=== PATIENT | male | born 1960 | race Native Hawaiian/Other Pacific Islander ===

== ENCOUNTER → 2017-01-07 | Outpatient (CLI) | payer BC ==
--- NOTE | 2017-01-07 12:07 | PN ---
DATE OF SERVICE: 01/07/2017 A 56-year-old gentleman who has been followed in the Sleep Center for treatment of obstructive sleep apnea-hypopnea syndrome. I discussed results of diagnostic sleep study and CPAP titration with the patient in detail. He has moderate obstructive sleep apnea-hypopnea syndrome. He was started on treatment with CPAP. He is trying to use his equipment every night, he feels better with the equipment, sleeping better and feeling better during the day. His complaint is that he has pain in his left nostril versus no pain in the right nostril. I checked his CPAP unit. Usage is 28 out of 30 nights for more than 4 hours. Average usage is 6.8 hours. Pressure is 10 cm of water. Leak is 11 L/min, which is in acceptable range. Apnea-hypopnea index reading from the machine is only 0.8. MEDICATIONS: None. During physical exam, patient in no distress. BP 126/58, HR 72, RR 16. Weight 199.8. Temp 98.2. Oxygen saturation at room air 97%. [place] Sleepiness Scale is 2. OROPHARYNX: Low position of soft palate. NECK: Supple. No JVD, Thyroid is not palpable. LUNGS: Clear to percussion and to auscultation. Good air exchange. No wheezing or rhonchi. HEART: S1, S2 regular. No murmurs, gallops, or rubs. ABDOMEN: Soft and nontender. Bowel sounds are present. No organomegaly appreciated. CROSS TIE MAKER: Awake, alert, and oriented x3. Cranial nerves 2 to 7 intact. There is no fasciculation or atrophy noted. No focal deficits observed. IMPRESSION: 1. Moderate obstructive sleep apnea-hypopnea syndrome. Apnea-hypopnea index 20.6 with oxygen desaturation to 86.3%, on control with CPAP at 10 cm of water. 2. Mild periodic limb movements have been documented during the sleep study. 3. Patient has history of out of dream behavior episodes, significantly improved after he is on treatment with CPAP. No significant problem at the present time. 4. Nasal septum deviation. 5. Size of the left nostril is less than right nostril, nasal septum deviation and restriction of nasal breathing more on the right side PLAN: 1. We will try different size of nasal pillows. 2. If it will not work, we may consider small nasal mask to prevent any discomfort in the nostrils. 3. Gel Young to the nostrils with the usage of nasal pillow mask. 4. Losing weight. 5. Sleep hygiene with regular time in bed for at least 8 hours. 6. No driving if feeling any sleepiness. Sincerely, Juanjo Kim MD, PhD, FAASM Diplomat of [place] Board of Sleep Medicine, Sleep Medicine Board by [place] [employer] Specialities [place] Board of Internal Medicine Laundry Tech of [facility] [place]
== END | disposition home or self-care (01) ==
LOC: SLEEP 10:36
PROVIDERS: ATTEND Internal Medicine
DX: G47.33 Obstructive sleep apnea (adult) (pediatric) (principal); J34.2 Deviated nasal septum

== ENCOUNTER 2017-10-22 08:00 | Day surgery (SDC) | payer BC ==
[2017-10-20 11:37] VITALS: BMI 27.3
--- NOTE | 2017-10-22 07:14 | P.GSHP ---
History of Present Illness H&P Date: 10/22/17 CHIEF COMPLAINT: Hemorrhoids including colonoscopy screening. HISTORY OF PRESENT ILLNESS: The patient is a 57-year-old male who presents with hemorrhoids including need for colon screening. Lower endoscopy was offered for further evaluation and management. PAST MEDICAL HISTORY: Please see list. PAST SURGICAL HISTORY: Please see list. MEDICATIONS: Please see list. ALLERGIES: Please see list. SOCIAL HISTORY: No illicit drug use FAMILY HISTORY: No reports of Crohn disease or ulcerative colitis. REVIEW OF ORGAN SYSTEMS: CONSTITUTIONAL: No reports of fevers or chills. No reports of weight loss despite prior attempts. GI: Has diarrhea including change in bowel habits. PHYSICAL EXAM: VITAL SIGNS: Stable GENERAL: Well-developed pleasant male in no acute distress. HEENT: No scleral icterus. Extraocular movements grossly intact. Moist buccal mucosa. NECK: Supple without lymphadenopathy. CHEST: Unlabored respirations. Equal bilateral excursions. CARDIOVASCULAR: Regular rate and rhythm. Distal 2+ pulses. ABDOMEN: Soft, nontender, nondistended. MUSCULOSKELETAL: No clubbing, cyanosis, or edema. ASSESSMENT: 1. History of hemorrhoids. 2. Due for colonic screening. PLAN: 1. I have recommended proceeding with a colonoscopy and hemorrhoidectomy. 2. Postoperative recovery including up to 4 weeks recovery were also described. Past Medical History Past Medical History: Sleep Apnea/CPAP/BIPAP Additional Past Medical History / Comment(s): cpap, hemorrhoids, inner ear issues on occasion History of Any Multi-Drug Resistant Organisms: None Reported Additional Past Surgical History / Comment(s): colonoscopy, wisdom teeth Past Anesthesia/Blood Transfusion Reactions: No Reported Reaction Smoking Status: Never smoker - Past Family History Mother Family Medical History: Cancer Additional Family Medical History / Comment(s): stomach Medications and Allergies Home Medications Medication Instructions Recorded Confirmed Type Acetaminophen/Diphenhydramine 1 each PO DAILY PRN 10/20/17 10/20/17 History [Tylenol PM Extra Strength] Ibuprofen [Advil] 200 mg PO Q8HR PRN 10/20/17 10/20/17 History Allergies Allergy/AdvReac Type Severity Reaction Status Date / Time sulfamethoxazole Allergy Rash/Hives Verified 10/20/17 11:18 [From Bactrim] trimethoprim [From Bactrim] Allergy Rash/Hives Verified 10/20/17 11:18
[~2017-10-22 08:00] MED LIST: BUPIVACAINE LIPOSOME/PF 1.3% 20 ML, SODIUM CHLORIDE 0.9% 10 ML MISCELLANE ONE; DEXAMETHASONE SOD PHOSPHATE 10 MG/ML 1 ML VIAL IV ONE; HEPARIN SODIUM,PORCINE 5,000 UNIT/ML 1 ML VIAL SQ ONE; HYDROmorphone 0.5 MG/0.5 ML SYRINGE IVP PRN; LACTATED RINGERS 1,000 ML IV SCH; LIDOCAINE 1% 20 ML VIAL (10MG/ML) FOR IV START INTRADERMA PRN; ONDANSETRON 4 MG/2 ML VIAL IVP ONE; Pre Op ABX Message 1 EACH MISC MISCELLANE ONE; SCOPOLAMINE 1.5MG/72HR PATCH TRANSDERM ONE; ceFAZolin IN SWFI 2 GM/20 ML SYRINGE IVP ONE
[2017-10-22 08:39] VITALS: TEMP 97.1
[2017-10-22] MEDS ORDERED: fentaNYL (PF) 50 MCG/ML 2 ML AMP ONE (09:54)
[2017-10-22] MEDS ORDERED: PROPOFOL 10 MG/ML 20 ML VIAL IV ONE (09:54)
[2017-10-22] MEDS ORDERED: MIDAZOLAM 2 MG/2 ML VIAL ONE (09:54)
--- NOTE | 2017-10-22 10:57 | P.OP ---
Date of Procedure: 10/22/17 Description of Procedure: SURGEON: TED MEYERS MD AIRPORT OPERATIONS SUPERVISOR: NONE. PREOPERATIVE DIAGNOSES: 1. History of complicated internal hemorrhoids, grade 3 2. History of complicated external hemorrhoids, grade 3. 3. Rectal bleeding. POSTOPERATIVE DIAGNOSES: 1. History of complicated internal hemorrhoids, grade 3 2. History of complicated external hemorrhoids, grade 3. 3. Rectal bleeding. OPERATION: 1. Intraoperative colonoscopy (please see separate operative report). 2. Excision of internal and external hemorrhoids x3 using LigaSure. ANESTHESIA: General with local anesthetic, Exparel. ESTIMATED BLOOD LOSS: 2 mL. PATHOLOGY: Internal, external hemorrhoidal complex x 3. FINDINGS: 1. Complicated internal hemorrhoid, grade 3 with recent bleed. 2. External hemorrhoid, grade 3 excised. 3. No anal stricture upon excision of hemorrhoidal complexes. INDICATIONS: The patient is a 57-year-old male who presents with history of anemia including rectal bleeding. He has history of complicated hemorrhoids. He presents for excision of her hemorrhoids including colonoscopy. Benefits and risks of the procedure, including bleeding, infection, incontinence, recurrent pain and recurrence of the hemorrhoids were discussed in detail. Informed consent was obtained. DESCRIPTION: Patient was brought to the operating room. An initial intraoperative colonoscopy was proposed. The patient was kept on a stretcher and repositioned in the left lateral decubitus position. A timeout protocol with the endoscopy team was performed. An intraoperative colonoscopy was completed. Please see separate operative report for details. The patient was now prepared for the surgical portion of her procedure. After general induction, he was then repositioned the prone jackknife position. Next, the perineum and buttocks was spread apart using Mastisol. The perineum was then prepped and draped in standard sterile fashion using Betadine. Preoperative medication was confirmed. Prior to incision, a timeout protocol was confirmed with surgical team. Initially 2 fingers was easily inserted for dilation of the anus. Next, using a Hill-Holguin anoscope, each hemorrhoidal cushion was addressed using a hand-held LigaSure. In a stepwise fashion, each hemorrhoidal complex was elevated using an Allis clamp. Of the right lateral cushion, a grade 3 internal and external hemorrhoidal complex of recent bleeding was encountered and excised. Next, attention was brought to the anterior lateral portion whereby grade 3 internal/external hemorrhoid was also excised in a similar fashion using a LigaSure. Finally the hemorrhoidal complex was elevated using a Allis clamp and the left lateral cushion was excised at the internal and external complex using a LigaSure device. Hemostasis was excellent. At the end of the case, 2 fingers were readily passed through the anus without any features of the anal stricture or stenosis. Please note that prior to hemorrhoidectomy a rectal block using Exparel was placed for anesthetic. The perineum was cleansed. A 4 x 4 with mesh underwear was placed. At the end of the procedure, needle, sponge, and counts had been verified correct by the rn medical surgical. The patient then had tolerated the procedure well. Intraoperative findings including postoperative care instructions were discussed with his family whereby he Sitz baths at least 3 times daily was advised. Stool softeners including prophylactic Flagyl for 5 to 7 day course was also addressed as well as pain medication.
--- NOTE | 2017-10-22 11:00 | P.PCN ---
Date of Procedure: 10/22/17 Description of Procedure: PREOPERATIVE DIAGNOSIS: Colonoscopy screening. POSTOPERATIVE DIAGNOSIS: Colonoscopy screening. Colon polyps descending colon. OPERATION: Colonoscopy to the ileocecal valve and appendiceal orifice. Colonoscopy with multiple cold forceps biopsies. SURGEON: Soha Ocampo MD. ANESTHESIA: MAC. INDICATIONS: The patient is a 57-year-old male who presents for colonoscopy screening. Benefits and risks were described and informed consent was obtained. DESCRIPTION OF PROCEDURE: The patient had undergone Gatorade, MiraLAX and Dulcolax prep. He had been brought into the operating room and laid in the left lateral decubitus position. After adequate intravenous sedation, the rectum was examined with 2% lidocaine jelly. External hemorrhoids were encountered. The prostate was smooth and without nodularity. The rectal tone was within normal limits. No lesions were palpated in the rectal vault. An Olympus colonoscope was advanced until the ileocecal valve and appendiceal orifice were clearly viewed. The prep was fair with visualization of the mucosal folds. The scope was removed with visualization of each mucosal fold. No scattered diverticulosis was encountered. Colonic polyps were found and cold forcep biopsy. No evidence of focal colitis was found. Retroflexion of the scope demonstrated grade 3 internal hemorrhoids without active bleeding or inflammation. The colon was desufflated. The patient had tolerated the procedure well. Withdrawal time was over 6 minutes. FINDINGS: Internal hemorrhoids, grade 3 External hemorrhoids, grade 3. No arteriovenous malformations. No sigmoid diverticulosis. Removal of 2 hyperplastic polyps from the descending colon: - Cold forceps biopsy at 40 cm from the anal verge, 5 mm polyp. - Cold forceps biopsy at 35 cm from the anal verge, 4 mm polyp. No focal colitis. RECOMMENDATIONS: Repeat colonoscopy in 5 years, 2021. Plan - Discharge Summary New Discharge Prescriptions: No Action Ibuprofen [Advil] 200 mg PO Q8HR PRN PRN Reason: Pain Acetaminophen/Diphenhydramine [Tylenol PM Extra Strength] 1 each PO DAILY PRN PRN Reason: Insomnia Discharge Medication List Acetaminophen/Diphenhydramine [Tylenol PM Extra Strength] 1 each PO DAILY PRN [History] Ibuprofen [Advil] 200 mg PO Q8HR PRN 10/20/17 [History]
[2017-10-22 11:07] VITALS: PULSE 67; RESP 20
[2017-10-22 12:24] VITALS: BP 121/76
== END 2017-10-22 12:23 | disposition home or self-care (01) ==
LOC: ORWHC2ENDO 08:00
PROVIDERS: ATTEND Surgery Plastic and Reconstructive Surgery
DX: K64.8 Other hemorrhoids (principal); D12.3 Benign neoplasm of transverse colon; K64.4 Residual hemorrhoidal skin tags; K62.5 Hemorrhage of anus and rectum; D64.9 Anemia, unspecified; G47.30 Sleep apnea, unspecified; Z80.0 Family history of malignant neoplasm of digestive organs; Z79.1 Long term (current) use of non-steroidal anti-inflammatories (NSAID); Z79.899 Other long term (current) drug therapy; Z88.2 Allergy status to sulfonamides
CPT/HCPCS: 88304; 88305; 45380; 46260; J2250; J1644; J1100; J0690; J2405; J3010; C9290; J2704

== ENCOUNTER → 2017-12-16 | Outpatient (CLI) | payer BC ==
--- NOTE | 2017-12-16 17:30 | PN ---
PROGRESS NOTE DATE OF SERVICE: 12/16/2017 A 57-year-old gentleman who has been followed in the Sleep Center for treatment of obstructive sleep apnea-hypopnea syndrome. Patient continues successfully to use his CPAP equipment without any problems. No snoring with the machine. No daytime sleepiness. [place] Sleepiness Scale is 4. I checked patient's CPAP unit. CPAP pressure is 10 cm of water. Average usage 5.5 hours. Apnea-hypopnea index 0.6 only with the machine, which is perfect. Leak is not significant, only 13 L/minute. The patient is using DreamWear CPAP mask. MEDICATIONS: None. PHYSICAL EXAMINATION: GENERAL Patient in no distress. VITAL SIGNS BP 129/74 HR 70, RR 16, height 5 feet 7 inches weight now 192, BMI 30, temp 97.6, oxygen saturation at room air 98%. HEENT PERRLA, EOMI, evaluation of oropharynx showed tongue protrudes midline, low position of soft palate. Neck Supple, no JVD. Thyroid is not palpable. LUNGS Clear to percussion and to auscultation. Good air exchange. No wheezing or rhonchi. HEART S1, S2 regular. No murmurs, gallops, or rubs. ABDOMEN Soft and nontender. Bowel sounds are present. No organomegaly appreciated. EXTREMITIES No clubbing or cyanosis. PROGRAM CONSULTANT Awake, alert, and oriented X3. Cranial nerves 2 to 7 intact. There is no fasciculation or atrophy. noted. No focal deficits observed. IMPRESSION: 1. Obstructive sleep apnea-hypopnea syndrome on full control with CPAP at 10 cm of water. Patient benefitting from treatment. 2. Mild obesity, BMI 30.0. Patient lost 7 pounds of weight since last visit about 1 year ago. 3. No episodes of out of dream movements. 4. No episodes of any out of dream movements at the present time, after which the patient was started on treatment with CPAP. 5. History of mild periodic limb movements. 6. Mild nasal septum deviation. PLAN: 1. Continue treatment with CPAP every night for the whole night. 2. Watching and losing weight. 3. Sleep hygiene with regular time in bed for at least 8 hours. 4. No driving if feeling any sleepiness. 5. Followup visit in 1 year or earlier if patient has any problems. Thank you very much for allowing me to participate in management of your patient. Sincerely, Juanjo Kim MD, PhD, FAASM Diplomat of [place] Board of Medical Specialties [place] Board of Internal Medicine Tipple Operator of [facility] [place] MMFAY / ZION: [id number] /
== END | disposition home or self-care (01) ==
LOC: SLEEP 16:09
PROVIDERS: ATTEND Internal Medicine
DX: G47.33 Obstructive sleep apnea (adult) (pediatric) (principal); E66.9 Obesity, unspecified; J34.2 Deviated nasal septum; Z68.30 Body mass index [BMI] 30.0-30.9, adult; Z87.09 Personal history of other diseases of the respiratory system; Z99.89 Dependence on other enabling machines and devices

== ENCOUNTER → 2019-10-19 | Outpatient (CLI) | payer BC, OTHER ==
--- NOTE | 2019-10-19 17:08 | PN ---
PROGRESS NOTE DATE OF SERVICE: 10/19/2019 This patient is a 59-year-old gentleman who has been followed in Sleep Center for treatment of obstructive sleep apnea-hypopnea syndrome. The patient continues to use his CPAP equipment without significant problems. [place] Sleepiness Scale today is only 7. I checked the patient's CPAP unit. CPAP pressure is 10 cm of water. Average usage is around 4 hours per night. Leak is only 4 L/minute. Apnea-hypopnea index 0.8, which is normal. MEDICATIONS: None. PHYSICAL EXAMINATION: GENERAL: A pleasant patient in no distress. VITAL SIGNS: BP 133/80, HR 76, RR 16. Height 5 feet 8 inches, weight 197.2, body mass index 30.1. The patient's weight has increased by 5 pounds. Temperature 97.7, oxygen saturation at room air 97%. HEENT: PERRLA, EOMI. Evaluation of oropharynx showed tongue protrudes midline. Low position of soft palate. Mallampati III. NECK: Supple. No JVD. Thyroid is not palpable. LUNGS: Clear to percussion and to auscultation. Good air exchange. No wheezing or rhonchi. HEART: S1, S2 regular. No murmurs, gallops or rubs. ABDOMEN: Soft and nontender. Bowel sounds are present. No organomegaly. EXTREMITIES: No clubbing or cyanosis. REELING MACHINE SETUP OPERATOR: Awake, alert, and oriented X3. Cranial nerves 2 to 7 intact. There is no fasciculation or atrophy. noted. No focal deficits observed. IMPRESSION: 1. Obstructive sleep apnea-hypopnea syndrome, under full control with CPAP at 10 cm of water. Patient is benefitting from treatment. 2. Mild obesity. 3. History of pis-jn-mxbwt movements. No fjd-im-qvglw movements at the present time. 4. History of mild periodic limb movements. 5. Mild nasal septum deviation. PLAN: 1. Patient will continue to use CPAP equipment every night for the whole night. 2. Losing weight. 3. Sleep hygiene with regular time in bed for at least 7-1/2 to 8 hours. 4. No driving if feeling any sleepiness. 5. Follow-up visit in one year, or earlier if the patient has any problems. 6. I will maintain all necessary prescriptions for CPAP supplies, including nasal pillow, mask, tube, filters. Thank you very much for allowing me to participate in the management of your patient. Sincerely, Juanjo Kim MD, PhD, FAASM Diplomat of [place] [employer] Special[employer] [place] [employer] Medicine Glazier Structural Glass of [facility] [place] STARLA / ZION: [id number] /
== END | disposition home or self-care (01) ==
LOC: SLEEP 15:42
PROVIDERS: ATTEND Internal Medicine
DX: G47.33 Obstructive sleep apnea (adult) (pediatric) (principal); E66.9 Obesity, unspecified; J34.2 Deviated nasal septum; Z68.30 Body mass index [BMI] 30.0-30.9, adult; Z87.39 Personal history of other diseases of the musculoskeletal system and connective tissue; Z86.69 Personal history of other diseases of the nervous system and sense organs; Z99.89 Dependence on other enabling machines and devices

== ENCOUNTER → 2020-10-24 | Outpatient (CLI) | payer OTHER ==
--- NOTE | 2020-10-24 18:03 | SFUN ---
SLEEP CENTER FOLLOW UP NOTE DATE OF SERVICE: 10/24/2020 This patient is a 60-year-old gentleman who has been followed in Sleep Center for treatment of obstructive sleep apnea-hypopnea syndrome. Patient successfully continues to use his CPAP equipment. No snoring with CPAP. [place] Sleepiness Scale is 9. I checked his CPAP unit. The patient used it for the last year 204 nights. Average usage is about 3 hours per night. Leak is only 5 L/minute. Apnea-hypopnea index is only 0.4, which is absolutely perfect. The pressure is 10 cm of water. MEDICATIONS: None. PHYSICAL EXAMINATION: GENERAL: A pleasant patient in no distress. VITAL SIGNS: BP 148/80, HR 76, RR 15, height 5 feet 7 inches, weight 199, BMI 31.1, temperature 97.9, oxygen saturation at room air 98%. HEENT: PERRLA, EOMI. Evaluation of oropharynx showed tongue protrudes midline. Low position of soft palate. Mallampati III. NECK: Supple. No JVD. Thyroid is not palpable. LUNGS: Clear to percussion and to auscultation. Good air exchange. No wheezing or rhonchi. HEART: S1, S2 regular. No murmurs, gallops or rubs. ABDOMEN: Soft and nontender. Bowel sounds are present. No organomegaly appreciated. EXTREMITIES: No clubbing or cyanosis. RESEARCH ASSOCIATE POLICY: Awake, alert, and oriented X3. Cranial nerves 2 to 7 intact. There is no fasciculation or atrophy. noted. No focal deficits observed. IMPRESSION: 1. Obstructive sleep apnea-hypopnea syndrome, normal respiration on CPAP. The patient is benefitting from treatment. 2. Mild obesity. 3. History of mild periodic limb movements. 4. History of mdz-ct-twwqg movements in the past. No significant tnp-ot-erzrs movements recently. 5. Nasal septum deviation. PLAN: 1. Patient will continue to use PAP equipment every night for the whole night. 2. Sleep hygiene with regular time in bed for at least 7-1/2 to 8 hours. 3. Precautions related to driving. No driving if feeling sleepiness. 4. I will maintain all necessary prescription for PAP supplies including mask, tube, filters. 5. Watching weight. 6. No driving if feeling sleepiness. 7. Follow-up visit in 6 months or earlier if patient has any problems. Thank you very much for allowing me to participate in the management of your patient. Sincerely, Juanjo Kim MD, PhD, FAASM Diplomat of [place] Board of Medical Specialties [place] Board of Internal Medicine Liquified Natural Gas Technician of [facility] [place] STARLA / ZION: [id number] /
== END | disposition home or self-care (01) ==
LOC: SLEEP 15:39
PROVIDERS: ATTEND Internal Medicine
DX: G47.33 Obstructive sleep apnea (adult) (pediatric) (principal); E66.9 Obesity, unspecified; J34.2 Deviated nasal septum; Z86.59 Personal history of other mental and behavioral disorders; Z99.89 Dependence on other enabling machines and devices

== ENCOUNTER → 2021-07-23 | Outpatient (CLI) | payer OTHER ==
--- NOTE | 2021-07-23 21:02 | SFUN ---
SLEEP CENTER FOLLOW UP NOTE DATE OF SERVICE: 07/23/2021 This is a 61-year-old gentleman who has been followed in Sleep Center for treatment of obstructive sleep apnea-hypopnea syndrome. The patient continues to use his CPAP equipment, but he explained that at the beginning of the night he moves often from side to side and he is not starting his machine at that moment; starting a little bit later. [place] Sleepiness Scale today increased at 12. I checked his CPAP unit. Pressure is 10 cm of water. Usage is 18/30 nights and 8/30 nights for more than 4 hours, average 3.4 hours per night. Leak is only 1 L/minute, apnea-hypopnea index only 0.5. MEDICATIONS: None. PHYSICAL EXAMINATION: GENERAL: Pleasant patient in no distress. VITAL SIGNS: BP 136/80, HR 75, RR 18, height 5 feet 7 inches, weight 194, 5 pounds less than during previous visit. Body mass index 30.3, temperature 97.1, oxygen saturation at room air 97%. HEENT: PERRLA, EOMI, evaluation of oropharynx showed tongue protrudes midline. Low position of soft palate; Mallampati III. NECK: Supple, no JVD. Thyroid is not palpable. LUNGS: Clear to percussion and to auscultation. Good air exchange. No wheezing or rhonchi. HEART: S1, S2 regular. No murmurs, gallops, or rubs. ABDOMEN: Soft and nontender. Bowel sounds are present. No organomegaly appreciated. EXTREMITIES: No clubbing or cyanosis. CRACK OFF PERSON: Awake, alert, and oriented X3. Cranial nerves 2 to 7 intact. There is no fasciculation or atrophy. noted. No focal deficits observed. IMPRESSION: 1. Obstructive sleep apnea-hypopnea syndrome. Normal respiration on CPAP. 2. Mild obesity. 3. History of mild periodic limb movements. 4. History of some ydy-xc-wreey movements in the past. No complaints of movements at the present time. 5. Nasal septum deviation. PLAN: 1. I again discussed with the patient necessity to use equipment every night for the whole night. 2. Patient will continue to use PAP equipment every night for the whole night. 3. Sleep hygiene with regular time in bed for at least 7-1/2 to 8 hours. 4. Precautions related to driving. No driving if feeling sleepiness. 5. I will maintain all necessary prescription for PAP supplies including mask, tube, filters. 6. Watching weight. 7. Follow-up visit in 6 months or earlier if patient has any problems. Thank you very much for allowing me to participate in the management of your patient. Sincerely, Juanjo Kim MD, PhD, FAASM Diplomat of [place] [employer] Specialties Sleep Medicine Board of [place] Board of Internal Medicine Corporate Operations Compliance Manager of [facility] [place] MMBEVL / FERNANDON: [id number] /
== END ==
LOC: SLEEP 15:35
PROVIDERS: ATTEND Internal Medicine
DX: G47.33 Obstructive sleep apnea (adult) (pediatric) (principal); E66.9 Obesity, unspecified; G47.61 Periodic limb movement disorder; J34.2 Deviated nasal septum; Z68.30 Body mass index [BMI] 30.0-30.9, adult; Z99.89 Dependence on other enabling machines and devices; Z88.2 Allergy status to sulfonamides

== ENCOUNTER → 2022-01-21 | Outpatient (CLI) | payer OTHER ==
--- NOTE | 2022-01-21 20:00 | SFUN ---
SLEEP CENTER FOLLOW UP NOTE DATE OF SERVICE: 01/21/2022 61-year-old gentleman has been followed in Sleep Center for treatment of obstructive sleep apnea-hypopnea syndrome. Patient continued to use his CPAP equipment every night. Sometimes because of the back problems, he started to sleep on the chair and starting to use CPAP when he goes to bed. So sometimes he is using it for the most on the second part of the night. [place] Sleepiness Scale today is 8, which is normal. I checked his CPAP unit, pressure is 10 cm of water. Usage is 25/30 nights. Average usage is 3.2 hours per night. Leak is 5 L/minute, which is normal. Apnea-hypopnea index is 0.5 which is totally normal. MEDICATIONS: None. PHYSICAL EXAMINATION: GENERAL: Patient in no distress. BP 122/77, HR 70, RR 18, weight 195 pounds, height 5 feet 7 inches, temperature 97.7, oxygen saturation at room air 98%. Oropharynx: Low position of soft palate, Mallampati 3. NECK: Supple, no JVD. Thyroid is not palpable. LUNGS: Clear to percussion and to auscultation. Good air exchange. No wheezing or rhonchi. HEART: S1, S2 regular. No murmurs, gallops, or rubs. ABDOMEN: Soft and nontender. Bowel sounds are present. No organomegaly appreciated. EXTREMITIES: No clubbing or cyanosis. SEPTIC TANK SETTER: Awake, alert, and oriented X3. Cranial nerves 2 to 7 intact. There is no fasciculation or atrophy. noted. No focal deficits observed. IMPRESSION: 1. Obstructive sleep apnea-hypopnea syndrome normal respiration on CPAP .. 2. Mild obesity. 3. History of mild periodic limb movements. No complaints at the present time. 4. History of some out of vvs-yj-kyzxx movements in the past. Possible REM sleep behavioral disorder. Presently no out of mxz-lm-rgixm movements complaints. 5. Nasal septum deviation. PLAN: 1. Patient will continue to use PAP equipment every night for the whole night. 2. Sleep hygiene with regular time in bed for at least 7-1/2 to 8 hours. 3. Precautions related to driving. No driving if feeling sleepiness. 4. I will maintain all necessary prescription for PAP supplies including mask, tube, filters. 5. Watching weight. 6. Follow-up visit in 6 months or earlier if patient has any problems. Thank you very much for allowing me to participate in management of your patient. Sincerely, Juanjo Kim MD, PhD, FAASM Diplomat of [place] Board of [employer] Specialties Sleep Medicine Board of [place] Board of Internal Medicine Nursing Student of [facility] [place] MMFAY / ZION: [id number] /
== END ==
LOC: SLEEP 15:36
PROVIDERS: ATTEND Internal Medicine
DX: G47.33 Obstructive sleep apnea (adult) (pediatric) (principal); E66.9 Obesity, unspecified; G47.61 Periodic limb movement disorder; J34.2 Deviated nasal septum; Z99.89 Dependence on other enabling machines and devices; Z88.2 Allergy status to sulfonamides

== ENCOUNTER → 2022-07-29 | Outpatient (CLI) | payer BC ==
--- NOTE | 2022-07-29 17:10 | P.PN ---
Subjective DATE: 07/29/2022 FOLLOW UP VISIT. Patient with obstructive sleep apnea hypopnea syndrome return to sleep center for follow-up visit. Information from previous visit have been reviewed. Patient is using PAP equipment every night for the whole night, getting PAP supplies in time. The patient does not have significant problems with the mask, PAP unit and humidification. [place] sleepiness scale is increased to 12. I checked information from PAP unit. PAP unit pressure 10 cm H2O. Usage is 16 out of 30 nights for more then 4 hours, average 4.3 hours per night. Leak is 5 l/m, which is in acceptable range. Apnea Hypopnea Index is 0.5, which is perfect. MEDICATIONS: None During physical exam: GENERAL: A pleasant patient without any distress. VITAL SIGNS: BP 155/83, HR 73, RR 16 , weight 195.0, temperature 91.2, oxygen saturation at room air 97 % . HEENT: PERRLA, EOMI.low position of soft palate, Mallapati 3 . NECK: Supple. No JVD. LUNGS: Clear to percussion and to auscultation. Good air exchange. No wheezing or rhonchi. HEART: S1, S2 regular. ABDOMEN: Soft and nontender.[] EXTREMITIES: No clubbing or cyanosis. CAMPAIGN FUNDRAISER: Awake, alert, and oriented x3. No focal deficit. Impressions: 1. Obstructive sleep apnea-hypopnea syndrome. Patient demonstrated borderline compliance with treatment, benefiting from treatment. 2. Mild obesity. 3. History of mild periodic limb movements. Clinically no problems. 4. History of out of dream movements in the past, possibly REM sleep behavior disorder. Presently no problems. 5. Nasal septum deviation. Plan: 1. I discussed with the patient necessity to continue using PAP equipment every night for the whole night. 2. To change air filter at least 1-2 times per month. 3. PAP unit should stay lower then position of the head. 4. Advised patient to remove all remaining water from humidifier canister daily and make it dry after each usage. Refill canister with fresh distilled water before each usage. 5. Sleep hygiene with regular time in bed for at least 8 hours. 6. Precautions related to driving. No driving if feel any sleepiness. 7. I will maintain prescription for PAP supplies including mask, tube, filters. 8. Follow up visit in 6 months or earlier if patient has any problems. 9. Watching weight. Thank you very much for allowing me to participate in the management of your patient. Juanjo Kim MD, PhD, FAASM. Diplomat of [employer] [employer], Sleep Medicine Board by [employer] Supervisor Grower of [facility] [place]
== END ==
LOC: SLEEP 15:34
PROVIDERS: ATTEND Internal Medicine
DX: G47.33 Obstructive sleep apnea (adult) (pediatric) (principal); E66.9 Obesity, unspecified; J34.2 Deviated nasal septum; Z99.89 Dependence on other enabling machines and devices; G47.61 Periodic limb movement disorder; Z88.2 Allergy status to sulfonamides

== ENCOUNTER 2022-11-04 07:12 | Day surgery (SDC) | payer BC ==
[~2022-11-04 07:12] MED LIST changes: -BUPIVACAINE LIPOSOME/PF 1.3% 20 ML, SODIUM CHLORIDE 0.9% 10 ML MISCELLANE ONE; -DEXAMETHASONE SOD PHOSPHATE 10 MG/ML 1 ML VIAL IV ONE; -HEPARIN SODIUM,PORCINE 5,000 UNIT/ML 1 ML VIAL SQ ONE; -HYDROmorphone 0.5 MG/0.5 ML SYRINGE IVP PRN; -LIDOCAINE 1% 20 ML VIAL (10MG/ML) FOR IV START INTRADERMA PRN; -ONDANSETRON 4 MG/2 ML VIAL IVP ONE; -Pre Op ABX Message 1 EACH MISC MISCELLANE ONE; -SCOPOLAMINE 1.5MG/72HR PATCH TRANSDERM ONE; -ceFAZolin IN SWFI 2 GM/20 ML SYRINGE IVP ONE
[2022-11-04 07:36] VITALS: TEMP 97.1
--- NOTE | 2022-11-04 07:37 | P.GSHP ---
History of Present Illness H&P Date: 11/04/22 CHIEF COMPLAINT: Colon screen HISTORY OF PRESENT ILLNESS: The patient is a 62-year-old male who presents for colon screen. Lower endoscopy was offered for further evaluation and management. PAST MEDICAL HISTORY: Please see list. PAST SURGICAL HISTORY: Please see list. MEDICATIONS: Please see list. ALLERGIES: Please see list. SOCIAL HISTORY: No illicit drug use FAMILY HISTORY: No reports of Crohn disease or ulcerative colitis. REVIEW OF ORGAN SYSTEMS: CONSTITUTIONAL: No reports of fevers or chills. PHYSICAL EXAM: VITAL SIGNS: Stable GENERAL: Well-developed pleasant in no acute distress. HEENT: No scleral icterus. Extraocular movements grossly intact. Moist buccal mucosa. NECK: Supple without lymphadenopathy. CHEST: Unlabored respirations. Equal bilateral excursions. CARDIOVASCULAR: Regular rate and rhythm. Distal 2+ pulses. ABDOMEN: Soft, nontender, nondistended. MUSCULOSKELETAL: No clubbing, cyanosis, or edema. ASSESSMENT: 1. Colon screen. PLAN: 1. Recommend proceeding with a lower endoscopy Past Medical History Past Medical History: Sleep Apnea/CPAP/BIPAP Additional Past Medical History / Comment(s): cpap, hemorrhoids, inner ear issues on occasion History of Any Multi-Drug Resistant Organisms: None Reported Additional Past Surgical History / Comment(s): colonoscopy, wisdom teeth Past Anesthesia/Blood Transfusion Reactions: No Reported Reaction Smoking Status: Never smoker - Past Family History Mother Family Medical History: Cancer Additional Family Medical History / Comment(s): stomach Medications and Allergies Home Medications Medication Instructions Recorded Confirmed Type Simvastatin 10 mg PO DAILY 10/30/22 11/04/22 History Allergies Allergy/AdvReac Type Severity Reaction Status Date / Time sulfamethoxazole Allergy Rash/Hives Verified 11/04/22 07:28 [From Bactrim] trimethoprim [From Bactrim] Allergy Rash/Hives Verified 11/04/22 07:28 Surgical - Exam Vital Signs Temp Pulse Resp BP Pulse Ox 97.1 F L 80 15 172/90 96 11/04/22 07:34 11/04/22 07:34 11/04/22 07:34 11/04/22 07:34 11/04/22 07:34
[2022-11-04] MEDS ORDERED: PROPOFOL 10 MG/ML 20 ML VIAL IV ONE (07:57)
[2022-11-04 08:19] VITALS: RESP 16
[2022-11-04 08:32] VITALS: BP 112/69; PULSE 67
--- NOTE | 2022-11-04 08:49 | P.PCN ---
Date of Procedure: 11/04/22 Description of Procedure: PREOPERATIVE DIAGNOSIS: Personal history colon polyps Colonoscopy screening. POSTOPERATIVE DIAGNOSIS: Personal history colon polyps Colonoscopy screening. OPERATION: Colonoscopy to the cecum, ileocecal valve and appendiceal orifice. SURGEON: Soha Ocampo MD. ANESTHESIA: MAC. INDICATIONS: The patient is a 62-year-old male who presents for colonoscopy screening. Last colonoscopy 5 years ago. Benefits and risks were described and informed consent was obtained. DESCRIPTION OF PROCEDURE: The patient had undergone Sutab prep. The patient had been brought into the operating room and laid in the left lateral decubitus position. After adequate intravenous sedation, the rectum was examined with 2% lidocaine jelly. The prostate was unremarkable. External hemorrhoids were encountered. The rectal tone was within normal limits. No lesions were palpated in the rectal vault. An Olympus colonoscope was advanced until the cecum, ileocecal valve and appendiceal orifice were clearly viewed. The prep was fairattered diverticulosis was encountered. No colonic polyps were found. No evidence of focal colitis was found. Retroflexion of the scope demonstrated grade 2 internal hemorrhoids without active bleeding or inflammation. The colon was desufflated. The patient had tolerated the procedure well. Withdrawal time was over 6 minutes. FINDINGS: [place]chick preparation quality scale (1-5) Internal hemorrhoids, grade 2 External prolapsed hemorrhoids, grade 2 No arteriovenous malformations. No adenomatous polyps. No focal colitis. RECOMMENDATIONS: Lower endoscopy in 5 years, 2026 Plan - Discharge Summary Discharge Rx Participant: No New Discharge Prescriptions: Continue Simvastatin 10 mg PO DAILY Discharge Medication List Simvastatin 10 mg PO DAILY 10/30/22 [History] Follow up Appointment(s)/Referral(s): Soha Ocampo MD [STAFF PHYSICIAN] - As Needed Patient Instructions/Handouts: *Sur[facility] - (Anesthesia) Endoscopy Discharge Instructions, Colonoscopy (DC) Discharge Disposition: HOME SELF-CARE
== END 2022-11-04 08:56 | disposition home or self-care (01) ==
LOC: ORWHC2ENDO 07:12
PROVIDERS: ATTEND Surgery Plastic and Reconstructive Surgery
DX: Z12.11 Encounter for screening for malignant neoplasm of colon (principal); K64.8 Other hemorrhoids; G47.33 Obstructive sleep apnea (adult) (pediatric); Z99.89 Dependence on other enabling machines and devices; Z86.010 Personal history of colon polyps; Z80.0 Family history of malignant neoplasm of digestive organs; Z88.2 Allergy status to sulfonamides; Z88.1 Allergy status to other antibiotic agents
CPT/HCPCS: 45378; J2704

== ENCOUNTER → 2023-02-17 | Outpatient (CLI) | payer BC ==
--- NOTE | 2023-02-17 16:01 | P.PN ---
Subjective DATE: 02/17/2023 FOLLOW UP VISIT. Patient with obstructive sleep apnea hypopnea syndrome return to sleep center for follow-up visit. Information from previous visit have been reviewed. Patient is using PAP equipment every night for the whole night, getting PAP supplies in time. Sometimes patient falling to sleep without CPAP and then put CPAP on. The patient does not have significant problems with the mask, PAP unit and humidification. [place] sleepiness scale is increased to 14. I checked information from PAP unit. PAP unit pressure 10 cm H2O. Usage is 70 % of nights, average 2.9 hours per night. Leak is 8 l/m, which is in acceptable range. Apnea Hypopnea Index is 0.4, which is normal. MEDICATIONS: None During physical exam: GENERAL: A pleasant patient without any distress. VITAL SIGNS: BP 134/79, HR 73, RR 16 , weight 193.4, temperature 98.3, oxygen saturation at room air 98 % . HEENT: PERRLA, EOMI.low position of soft palate, Mallapati 3 . NECK: Supple. No JVD. LUNGS: Clear to percussion and to auscultation. Good air exchange. No wheezing or rhonchi. HEART: S1, S2 regular. ABDOMEN: Soft and nontender.[] EXTREMITIES: No clubbing or cyanosis. SENIOR PROJECT MANAGER ENGINEERING: Awake, alert, and oriented x3. No focal deficit. Impressions: 1. Obstructive sleep apnea-hypopnea syndrome. Patient demonstrated borderline compliance with treatment, benefiting from treatment. 2. History of mild periodic limb movements, no complaints. 3. 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 4. Nasal septum deviation. 5. Mild obesity BMI 30.6. Plan: 1. Continue using PAP equipment every night for the whole night, patient promised to follow recommendations. 2. To change air filter at least 1-2 times per month. 3. PAP unit should stay lower then position of the head. 4. Advised patient to remove all remaining water from humidifier canister daily and make it dry after each usage. Refill canister with fresh distilled water before each usage. 5. Sleep hygiene with regular time in bed for at least 8 hours. 6. Precautions related to driving. No driving if feel any sleepiness. 7. I will maintain prescription for PAP supplies including mask, tube, filters. 8. Watching weight. 9. Follow up visit in 6 months or earlier if patient has any problems. Thank you very much for allowing me to participate in the management of your patient. Juanjo Kim MD, PhD, FAASM. Diplomat of [place] [employer], Sleep Medicine Board by [place] Swimming Coach of [facility] [place]
== END ==
LOC: SLEEP 15:36
PROVIDERS: ATTEND Internal Medicine
DX: G47.33 Obstructive sleep apnea (adult) (pediatric) (principal); E66.9 Obesity, unspecified; J34.2 Deviated nasal septum; Z68.30 Body mass index [BMI] 30.0-30.9, adult; G47.61 Periodic limb movement disorder; Z99.89 Dependence on other enabling machines and devices; Z88.2 Allergy status to sulfonamides
CPT/HCPCS: 99212

== ENCOUNTER → 2023-09-01 | Outpatient (CLI) | payer MEDICARE ==
--- NOTE | 2023-09-01 10:45 | P.PN ---
Subjective DATE: 09/01/2023 FOLLOW UP VISIT. Patient with obstructive sleep apnea hypopnea syndrome return to sleep center for follow-up visit. Information from previous visit have been reviewed. Patient is using PAP equipment every night for the whole night, getting PAP supplies in time. The patient does not have significant problems with the mask, PAP unit and humidification. [place] sleepiness scale is 6. I checked information from PAP unit. PAP unit pressure 10 cm H2O. Usage is 50 % for more then 4 hours, average 4 hours per night. Leak is 4l/m, which is in acceptable range. Apnea Hypopnea Index is 0.8, which is normal. MEDICATIONS: None During physical exam: GENERAL: A pleasant patient without any distress. VITAL SIGNS: BP 168/94, HR 73, RR 16, weight 198.6, temperature 97.8, oxygen saturation at room air 98 % . HEENT: PERRLA, EOMI.low position of soft palate, Mallapati 3 . NECK: Supple. No JVD. LUNGS: Clear to percussion and to auscultation. Good air exchange. No wheezing or rhonchi. HEART: S1, S2 regular. ABDOMEN: Soft and nontender.[] EXTREMITIES: No clubbing or cyanosis. TOY PAINTER: Awake, alert, and oriented x3. No focal deficit. Impressions: 1. Obstructive sleep apnea-hypopnea syndrome. Patient demonstrated borderline compliance with treatment, benefiting from treatment. 2. mild obesity, patient increased his weight on 5 pounds. 3. Hypertension in the office today. 4. History of out of dream movements, no present complaints. 5. Nasal septum deviation. I again discussed with patient the risks for the health of not using CPAP equipment every night, patient promised to follow recommendations. Plan: 1. Continue using PAP equipment every night for the whole night. 2. To change air filter at least 1-2 times per month. 3. PAP unit should stay lower then position of the head. 4. Advised patient to remove all remaining water from humidifier canister daily and make it dry after each usage. Refill canister with fresh distilled water before each usage. 5. Sleep hygiene with regular time in bed for at least 8 hours. 6. Precautions related to driving. No driving if feel any sleepiness. 7. I will maintain prescription for PAP supplies including mask, tube, filters. 8. Follow up visit in 6 months or earlier if patient has any problems. 9. Watching and losing weight. Thank you very much for allowing me to participate in the management of your patient. Juanjo Kim MD, PhD, FAASM. Diplomat of [employer], Sleep Medicine Board by [employer] Regional Sales Representative of [facility] [place]
== END ==
LOC: 3 N SLEEP 10:00
PROVIDERS: ATTEND Internal Medicine
DX: G47.33 Obstructive sleep apnea (adult) (pediatric) (principal); E66.9 Obesity, unspecified; I10 Essential (primary) hypertension; J34.2 Deviated nasal septum; Z99.89 Dependence on other enabling machines and devices; Z88.2 Allergy status to sulfonamides; Z88.1 Allergy status to other antibiotic agents
CPT/HCPCS: 99212

== ENCOUNTER → 2024-03-08 | Outpatient (CLI) | payer MEDICARE ==
--- NOTE | 2024-03-08 11:02 | P.PN ---
Subjective DATE: 03/08/2024 FOLLOW UP VISIT. Patient with obstructive sleep apnea hypopnea syndrome return to sleep center for follow-up visit. Information from previous visit have been reviewed. Patient is using PAP equipment every night for the whole night, getting PAP supplies in time. The patient does not have significant problems with the mask, PAP unit and humidification. [place] sleepiness scale is slightly increased to 11. I checked information from PAP unit. PAP unit pressure 10 cm H2O. Usage is 70% of nights, average 4 hours per night. Leak is 7 l/m, which is in acceptable range. Apnea Hypopnea Index is 1.3, which is normal. MEDICATIONS:1. Simvastatin During physical exam: GENERAL: A pleasant patient without any distress. VITAL SIGNS: Please see below. HEENT: PERRLA, EOMI.low position of soft palate, Mallapati 3 . NECK: Supple. No JVD. LUNGS: Clear to percussion and to auscultation. Good air exchange. No wheezing or rhonchi. HEART: S1, S2 regular. ABDOMEN: Soft and nontender.[] EXTREMITIES: No clubbing or cyanosis. SHREDDING MACHINE TENDER: Awake, alert, and oriented x3. No focal deficit. Impressions: 1. Obstructive sleep apnea-hypopnea syndrome. Patient demonstrated borderline compliance with treatment, benefiting from treatment. 2. Hyperlipidemia. 3. History of out of dream movements in the past, no complaints at the present time. 4. Mild obesity, BMI 30.3, patient lost 3 pounds comparing with the previous visit. 5. Nasal septal deviation. Plan: 1. Continue using PAP equipment every night for the whole night. 2. To change air filter at least 1-2 times per month. 3. PAP unit should stay lower then position of the head. 4. Advised patient to remove all remaining water from humidifier canister daily and make it dry after each usage. Refill canister with fresh distilled water before each usage. 5. Sleep hygiene with regular time in bed for at least 8 hours. 6. Precautions related to driving. No driving if feel any sleepiness. 7. I will maintain prescription for PAP supplies including mask, tube, filters. 8. Watching and losing weight. 9. Follow up visit in 6 months or earlier if patient has any problems. Thank you very much for allowing me to participate in the management of your patient. Juanjo Kim MD, PhD, FAASM. Diplomat of [place] [employer], Sleep Medicine Board by [place] [employer] Medicine Resaw Tailer of [facility] [place] Objective - Vital Signs Vital signs: Vital Signs Temp 98.1 F 03/08/24 10:46 Pulse 75 03/08/24 10:46 Resp 16 03/08/24 10:46 BP 128/83 03/08/24 10:46 Pulse Ox 98 03/08/24 10:46 FiO2 Intake & Output 03/07/24 03/08/24 03/08/24 18:59 06:59 18:59 Weight 88.451 kg
[2024-03-08 11:36] VITALS: BP 128/83; PULSE 75; RESP 16; TEMP 98.1
== END ==
LOC: 3 N SLEEP 10:31
PROVIDERS: ATTEND Internal Medicine
DX: G47.33 Obstructive sleep apnea (adult) (pediatric) (principal); E78.5 Hyperlipidemia, unspecified; E66.9 Obesity, unspecified; J34.2 Deviated nasal septum; Z68.30 Body mass index [BMI] 30.0-30.9, adult; Z86.69 Personal history of other diseases of the nervous system and sense organs; Z99.89 Dependence on other enabling machines and devices; Z88.2 Allergy status to sulfonamides; Z88.1 Allergy status to other antibiotic agents
CPT/HCPCS: 99212

== ENCOUNTER → 2024-10-18 | Outpatient (CLI) | payer MEDICARE ==
[2024-10-18 10:40] VITALS: BP 157/83; PULSE 74; RESP 16; TEMP 98.1
--- NOTE | 2024-10-18 10:54 | P.PROGSL ---
Subjective DATE: 10/18/2024 FOLLOW UP VISIT. Patient with obstructive sleep apnea hypopnea syndrome return to sleep center for follow-up visit. Information from previous visit have been reviewed. Patient is using PAP equipment every night for the whole night, getting PAP supplies in time. The patient does not have significant problems with the mask, PAP unit and humidification. [place] sleepiness scale is 4, which is normal. I checked information from PAP unit. PAP unit pressure 10 cm H2O. Usage is 80% for more then 4 hours, average 4 hours per night. Leak is 7 l/m, which is in acceptable range. Apnea Hypopnea Index is perfect 0.7. MEDICATIONS have been reviewed, please see below. During physical exam: GENERAL: A pleasant patient without any distress. VITAL SIGNS: Please see below, weight is 197 lbs. HEENT: PERRLA, EOMI.low position of soft palate, Mallapati 3. NECK: Supple. No JVD. LUNGS: Clear to percussion and to auscultation. Good air exchange. No wheezing or rhonchi. HEART: S1, S2 regular. ABDOMEN: Soft and nontender.[] EXTREMITIES: No clubbing or cyanosis. COMMERCIAL AIRLINE PILOT: Awake, alert, and oriented x3. No focal deficit. Impressions: 1. Obstructive sleep apnea-hypopnea syndrome. Patient demonstrated good compliance with treatment, benefiting from treatment. 2. Mild obesity, BMI 31.3. 3. Hypertension in the office. 4. Hyperlipidemia. 5. Nasal septum deviation. 6. History of possible REM sleep behavioral disorder episodes in the past, no recent episodes on treatment with CPAP. Plan: 1. Continue using PAP equipment every night for the whole night. 2. Sleep hygiene with regular time in bed for at least 7.5-8 hours 3. PAP unit should stay lower then position of the head. 4. Advised patient to remove all remaining water from humidifier canister daily and make it dry after each usage. Refill canister with fresh distilled water before each usage. 5. Watching and losing weight. 6. Precautions related to driving. No driving if feel any sleepiness. 7. I will maintain prescription for PAP supplies including mask, tube, filters. 8. Follow up visit in 8 months or earlier if patient has any problems. Thank you very much for allowing me to participate in the management of your patient. Juanjo Kim MD, PhD, FAASM. Diplomat of [employer] [employer] Medicine, Sleep Medicine Board by [employer] Medicine Nut Grader of [facility] [place] Objective - Vital Signs Vital Signs: Vital Signs Temp 98.1 F 10/18/24 10:39 Pulse 74 10/18/24 10:39 Resp 16 10/18/24 10:39 BP 157/83 10/18/24 10:39 Pulse Ox 98 10/18/24 10:39 FiO2 Intake & Output 10/17/24 10/18/24 10/18/24 18:59 06:59 18:59 Weight 89.358 kg Home Medications: Home Medications Medication Instructions Recorded Confirmed Type Simvastatin 10 mg PO DAILY 10/30/22 03/08/24 History Simvastatin [Zocor] 20 mg PO DAILY 10/18/24 10/18/24 History metFORMIN HCL [metFORMIN HCL ER 500 mg PO DAILY 10/18/24 10/18/24 History Osmotic]
== END ==
LOC: 3 N SLEEP 10:25
PROVIDERS: ATTEND Internal Medicine
DX: G47.33 Obstructive sleep apnea (adult) (pediatric) (principal); E66.9 Obesity, unspecified; Z68.31 Body mass index [BMI] 31.0-31.9, adult; I10 Essential (primary) hypertension; E78.5 Hyperlipidemia, unspecified; J34.2 Deviated nasal septum; Z99.89 Dependence on other enabling machines and devices; Z88.1 Allergy status to other antibiotic agents; Z88.2 Allergy status to sulfonamides
CPT/HCPCS: 99212